=== PATIENT | female | born 1945 | race Two or more races ===

== ENCOUNTER 2017-10-22 09:42 | Emergency (ER) | payer MEDICARE, MEDICAID ==
[~2017-10-22] VITALS: Ht 160 cm; Wt 81.6 kg
[2017-10-22 09:42] VITALS: BP 137/116
[2017-10-22] MEDS ORDERED: IBUPROFEN 600 MG TABLET PO ONE ×2 (09:54→10:00)
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
--- NOTE | 2017-10-22 10:38 | NUR ---
KATHIE OFFICER [id number] ELIZ AT BEDSIDE
--- NOTE | 2017-10-22 10:47 | NUR ---
Patient discharged to home in stable condition. Written and verbal after care instructions given. Patient verbalizes understanding of instruction. PROVIDED WITH WHEELCHAIR ASSSITANCE TO [employer].
== END 2017-10-22 10:59 | disposition home or self-care (01) ==
LOC: ER 09:43
DX: S20.219A Contusion of unspecified front wall of thorax, initial encounter (principal); E11.9 Type 2 diabetes mellitus without complications; I10 Essential (primary) hypertension; Z95.0 Presence of cardiac pacemaker; V43.52XA Car driver injured in collision with other type car in traffic accident, initial encounter; Y93.89 Activity, other specified; Y92.410 Unspecified street and highway as the place of occurrence of the external cause; Y99.8 Other external cause status
CPT/HCPCS: 71045-TC; 72100-TC; 72170-TC; A4606; Z7610